=== PATIENT | female | born 1995 ===

== ENCOUNTER 2025-06-06 08:09 | Inpatient (IN) | payer OTHER ==
[~2025-06-06] VITALS: Ht 157.5 cm; Wt 90.0 kg
[2025-06-06 10:55] VITALS: BP 133/93
[2025-06-06] MEDS ORDERED: Haloperidol Lactate Inj. 5 MG/ML Injection IM PRN (13:55)
[2025-06-06 13:56] VITALS: BP 133/93
[2025-06-06] MEDS ORDERED: Aluminum Hydroxide 320MG/5ML 473 ML PO PRN (14:00)
[2025-06-06] MEDS ORDERED: FLU VACC TS2025-26(6MOS UP)/PF 45 MCG/0.5 ML SYRINGE IM SCH (14:00)
[2025-06-06] MEDS ORDERED: DiphenhydrAMINE HCl 50 MG/ML 1ML Vial IM PRN (14:00)
[2025-06-06] MEDS ORDERED: Ondansetron 4 MG SoluTab MM PRN (14:05)
[2025-06-06] MEDS ORDERED: LORazepam 2 MG/ML 1ML Injection IM PRN (14:05)
[2025-06-06] MEDS ORDERED: Polyethylene Glycol 3350 17 gm PO PRN (14:05)
--- NOTE | 2025-06-06 17:47 | NUR ---
SHIFT SUMMARY/ADMIT NOTE PT ARRIVED TO [facility] FROM [facility] IN [place] AT APPROX 1038. PT IS HERE VOLUNTARILY. SHE IS CALM AND COOPERATIVE WITH CARE. PT ENDORSES FLEETING SUICIDAL THOUGHTS. SHE STATES SHE FEELS LIKE SHE STILL INTENDS ON CARRYING OUT HER PLANS OF HANGING IF THINGS IN HER LIFE DON'T GET BETTER, BUT ALSO ENDORSES FUTURE GOALS. PATIENT REPORTS HER RECENTLY ASKED FOR A DIVORCE AND THAT CAUSED HER TO SPIRAL BECAUSE SHE WILL LOSE ALL OF HER SUPPORT. PATIENT WAS ABLE TO IDENTIFY REASONS FOR LIVING SUCH WANTING TO LIVE INDEPENDENTLY, BE A BETTER PERSON FOR HER 2 DAUGHTERS, WORK TO SUPPORT HERSELF AND EVEN RELOCATE TO [place]. PT'S IMMINENT NEEDS INCLUDING FINDING STABLE HOUSING TO HELP SUPPORT HER DURING HER LIFE TRANSITION. PT WAS ORIENTED TO THE UNIT AND PROVIDED SHOWER SUPPLIES. SHE APPEARS TO BE SMILING AND MINGLING APPROPRIATELY WITH PEERS. THE ADMISSION WAS COMPLETED AND CONSENTS WERE SIGNED. PT IS CURRENTLY SITTING IN GROUP ROOM WATCHING A MOVIE. SHE DENIES ANY NEEDS AT THIS TIME.
[2025-06-06 19:26] VITALS: BP 135/90
--- NOTE | 2025-06-07 04:16 | NUR ---
Patient is alert and oriented times four. She spent the evening watching a movie with her peers before going to bed around 2200. She states she has fleeting thoughts of SI, but denies HI and AVTH. She took trazodone at HS, and has been sleeping since shortly after she went to bed. Will continiue close monitoring every 15 minutes per unit protocol for safety and comfort
[2025-06-07 08:24] LABS: Very Low Density Lipoprot Chol 13 mg/dL (6-28)
[2025-06-07 08:32] LABS: CHOL/HDL RATIO 3.2; Cholesterol 169 mg/dL (50-200); HDL Cholesterol 52 mg/dL (>39); LDL/HDL RATIO 2.0; Low Density Lipoprotein Chol 104 mg/dL (0-110); Triglycerides 66 mg/dL (30-140)
[2025-06-07] MEDS ORDERED: Multivitamins 1 Tab PO SCH (09:00)
--- NOTE | 2025-06-07 18:39 | NUR ---
SHIFT SUMMARY PT AxOx4. PLEASANT AND COOPERATIVE WITH CARE. PT REPORTED FEELING A LITTLE BETTER TODAY, ESPECIALLY AFTER SPEAKING WITH STAFF AND RECEIVING ENCOURAGEMENT ABOUT POSSIBLE SUPPORT SYSTEMS SHE CAN ACCESS DURING HER DIVORCE/TRANSITION. PT ATTENDED GROUPS TODAY AND TOOK MEDICATION PRESCRIBED. SHE ENDORSE SI, BUT STATED IT WAS MUCH LESS THAN YESTERDAY. SHE DECLINED AVTH. PT HAS BEEN MINGLING APPROPRIATELY ON THE UNIT WITH PEERS/STAFF. PT REPORTED HER CURRENT TREATMENT PLAN TO START MEDICATION TO HELP WITH ANXIETY AND SLEEP SUPPORT. PT STATES SHE FEELS ENCOURAGED AND HOPEFUL AT THIS TIME AND GLAD SHE IS "SAFE HERE." PT IS CURRENTLY SITTING ON HER BED TALKING WITH HER ROOMATE. SHE DENIES ANY NEED AT THIS TIME.
[2025-06-07 19:49] VITALS: BP 141/95
--- NOTE | 2025-06-07 21:21 | NUR ---
Isabelataril given for a mass score of 3 wth anxiety.
--- NOTE | 2025-06-08 04:40 | NUR ---
Patient is alert and oriented times four. She complained about not feeling well rested last night and wondered if there was something she could take before bed for anxiety. She was given vistaril 30 minutes before bed for a MASS score of 3, then trazodone at bedtime. Patient has slept all night . Patient denies SI,HI and AVTH during evening assessment. She stayed up n the milieu with peers and is very social. Will continue close observation every 15 inutes for safety and comfort
[2025-06-08 08:51] VITALS: BP 140/81
--- NOTE | 2025-06-08 15:19 | NUR ---
SHIFT ASSESSMENT: PT DENIED SI, HI AND AVH. SHE REPORTED HER ANXIETY LEVEL 4/10w, "HOW EVERYTHING WILL GO WHEN I LEAVE HERE...A SAFE PLACE FOR ME TO BE." SHE REPORTED HER MOOD , "BALANCED...NOT GREAT...NOT BAD, I HAVE BEEN INSPIRED THOUGH...I''M WRITING MY LITTLE STORIES AGAIN." HER GOALS ARE: "DRINK MORE WATER, WRITE AND GO TO GROUPS." PT HAS BEEN ATTENDING GROUPS, SHE HAS BEEN ACITVE IN THE PT MILIEU. HER AFFECT IS CONGRUENT WITH HER STATED MOOD. PT HAS BEEN PLEASANT AND COOPERATIVE WITH CARE.
--- NOTE | 2025-06-08 19:15 | NUR ---
PT'S NOSE RING IS CLEAN AND INTACT.
[2025-06-08 19:29] VITALS: BP 146/100
--- NOTE | 2025-06-09 04:23 | NUR ---
Patient is a very pleasant, oriented lady who spent her evening in the milieu and sharing snack with her peers. She denied SI,HI and AVTH during evening assessment. Clemencia had asked for an evening vistril secondary to mild anxiety, but opted not to take it when it was explained that she would be taking Remeron. to this time, it appears she has been sleeping since going to bed at around 2200. Will continue monitoring every 15 minutes for safety and comfort.
[2025-06-09 08:56] VITALS: BP 129/90
--- NOTE | 2025-06-09 17:30 | NUR ---
SHIFT SUMMARY PT DENIES SI, HI, AVTH. ENDORSED FRUSTRATION/ANGER AT PHONECALL W/ YESTERDAY. PT REQUESTED TO TALK TO "SOMEONE" ABOUT THE PHONECALL AND THIS RN USED THERAPEUTIC COMMUNICATION AND TALKED W/ PT, WHICH APPEARED TO BE EFFECTIVE. PT IS NOW IN DAY ROOM WATCHING TV AND INTERACTING W/ PEERS. ATTENDED GROUPS, ATE MEALS, AND NO OTHER ACUTE EVENTS TODAY.
[2025-06-09 19:11] VITALS: BP 128/87
--- NOTE | 2025-06-10 04:42 | NUR ---
SHIFT SUMMARY: PT A/O X4. DENIES SI, HI, AND AVH. PT STATES DEPRESSION IS STILL PRESENT.PT HAS A NOSE RING PIERCING PRESENT AT THIS TIME. PT SAID SHE HAD AN ANGER ATTACK EARILER,BUT, DANIELLE RODGERS HELPED HER OUT OF IT BY LETTING HER TALK HER FEELINGS THROUGH. HER ANGER ISSUE WAS BEING PISSED OF WHO ANNOUNCED, THAT HE WANTED A DIVORCE. SHE FELT BETTER NOW SINCE THINGS HAVE BEEN OK NOW. PT WRITES IN HER JOURNAL.PT FEELS THAT SHE JUST NEEDS A PLACE TO PLANT HER FEET AND SHE CAN GO ON FROM THERE. IN A HAPPY MOOD AT THIS TIME. SPEECH IS CLEAR AND EVEN TONE. REMINDED TO ASK FOR HELP IF NEEDS ANYTHING.
[2025-06-10 08:49] VITALS: BP 114/76
--- NOTE | 2025-06-10 16:25 | NUR ---
SHIFT SUMMARY: PT IS ALERT, ORIENTED AND COOPERATIVE WITH CARE. SHE DENIES SI AND HI. REPORTS HISTORY OF AUDITORY HALLUCINATIONS BUT DENIES THEM CURRENTLY. SHE APPEARS WELL GROOMED AND SHOWERED THIS AM. SHE HAS APPROPRIATE EYE CONTACT AND STATES THAT HER MOOD IS "OK". REPORTS SOME TROUBLE SLEEPING R/T NOT HAVING A FAN LIKE SHE HAS AT HOME. PT WAS PRESENT FOR MEALS AND ATTENDED GROUP. SHE WAS ACTIVE IN MILIEU, SPENT TIME WATCHING TV IN THE DAY ROOM AND WRITING IN HER JOURNAL.
--- NOTE | 2025-06-10 16:32 | NUR ---
SHIFT SUMMARY: PT ALERT, ORIENTED AND COOPERATIVE WITH CARE. HE DENIES SI, HI AND AVH. PT APPEARS WELL GROOMED AND HAS APPROPRIATE EYE CONTACT. STATES THAT HIS MOOD IS "OK BUT TIRED". HE WAS AGREEABLE TO COMPLETING HIS ADMIT ASSESSMENTS AND WAS ENGAGED DURING THE COMPLETION. HE WAS PRESENT FOR MEALS AND SPENT MUCH OF THE DAY RESTING ON HIS BED.
--- NOTE | 2025-06-11 04:10 | NUR ---
SHIFT SUMMARY: PT A/O X4. DENIES SI, HI, AND AVH. PT INTERACTS WITH OTHERS AND IS IN THE GROUP ROOM. HAS NO ISSUES AT THIS TIME. WENT TO GROUP AND SNACK TIME. COMPLIANT WITH MEDICATIONS. DID HAVE BACK PAIN AND IBUPROPHEN GIVEN WITH RELEAF. WATCHED MOVIE UNTIL BED TIME. WENT TO BED AND HAS BEEN SLEEPING SINCE THEN.WILL CONTINUE TO MONITOR Q 15 MIN.
--- NOTE | 2025-06-11 04:28 | NUR ---
PT HAS NOSE RING PIERCING PRESENT AND INTCT. DENIES ISSUES.
[2025-06-11 08:53] VITALS: BP 121/76
--- NOTE | 2025-06-11 10:11 | NUR ---
ASUUMED PT CARE @0700. PT UP FOR BREAKFAST, COMMUNITY MEETING AND MORNING MED PASS. SHE PRESENTS WELL GROOMED AND CALM. SHE REPORTS HER MOOD TIRED. SHE STATES THAT SHE SLEEP MOST OF THE NIGHT BUT KEPT WAKING UP WITH "WEIRD" DREAMS. SHE REPORTS THEY ARE NOT NIGHTMARES JUST STRANGE. SPEECH IS ORGANIZED AND LINEAR. EYE CONTACT IS APPROPRIATE. SHE IS COMPLIANT WITH MEDICATIONS AND DENIES ANY ADVERSE SIDE EFFECTS. SHE DENIES SI, AVH. SHE DENIES ANY CURRENT NEEDS. WILL CONTINUE PLAN OF CARE
--- NOTE | 2025-06-11 17:27 | NUR ---
SHIFT SUMMARY NO CLINICAL CHANGES TODAY. PT HAS BEEN UP FOR MEALS AND GROUPS. SHE IS PLEASANT AND COOPERATIVE WITH CARE. SHE IS INTERACTING WELL WITH STAFF AND PEERS. SHE DENIES ANY NEEDS. WILL CONTINUE POC
[2025-06-11 19:29] VITALS: BP 126/78
--- NOTE | 2025-06-12 04:36 | NUR ---
Patient sssspent her night in the group room watching movies with her peers. She asked this nurse during med pass if she would be able to receive a prescription for her 15mg Remeron when she goes home. She states it is the best sleep she has had in years. Dhe denies SI,HI and AVTH during evening assessment. No PRN medications were given. Will continue monitoring every 15 minutes for safety and comfort
[2025-06-12 08:52] VITALS: BP 129/76
--- NOTE | 2025-06-12 11:09 | NUR ---
ASSUMED PT CARE @0700. PT IS AA&O TO PERSON, PLACE, TIME, AND SITUATION. SHE IS PLEASANT AND COOPERATIVE WITH CARE. SHE REPORTS THAT SHE SLEPT WELL, SHE REPORTS HER MOOD ANXIOUS OVER DISCHARGE. SHE STATES DISAPPOINTMENT IN WAITING LIST FOR INTERMEDIATE SHE WOULD LIKE TO GO TO. WE SPENT TIME TALKING ABOUT THE PROCESS OF HOW AND WHERE TO APPLY FOR SNAP/TANF BENEFITS. SHE REPORTS GOOD RESULTS WITH MEDICATION REGIMINE AND DENIES ANY ADVERSE EFFECTS. SHE DENIES SI, AVH. SHE HAS BEEN UP FOR BREAKFAST AND SHOWER. SHE IS INTERACTING WELL WITH PEERS AND STAFF. WILL CONTINUE POC
[2025-06-12 20:06] VITALS: BP 144/96
--- NOTE | 2025-06-13 04:14 | NUR ---
Patient is alert and oriented times four. She spent the evening in the dayroom with her peers before going to snack and then heading to bed. She has slept through the night, and again mentioned how well the Remeron has worked for her. No PRN medications given overnight. Clemencia denies SI,HI and AVTH at time of evening assessment. Will continue close monitoring every 15 minutes for safety and comfort.
[2025-06-13 08:40] VITALS: BP 133/85
[2025-06-13] MEDS ORDERED: MIRT15 PO (11:47)
--- NOTE | 2025-06-13 14:28 | NUR ---
DISCHARGE NOTE PT AxOx4. PLEASANT AND COOPERATIVE WITH CARE. PT IS DISCHARGING TODAY TO THE [facility]. PT DENIED SI/HI AND AVTH OR ANY MEDICATION SIDE EFFECTS. SHE IS GOAL ORIENTED AND LOOKING FORWARD TO DISCHARGING TODAY. DISCHARGE INSTRUCTIONS WERE DISCUSSED INCLUDING DC MED LIST, PATIENT EDUCATION ON NEW MEDS, FOLLOW UP MENTAL HEALTH OUTPATIENT INFO AND ADDITIONAL RESOURCES. PT VERBALIZED UNDERSTANDING. SAFETY PLAN WAS COMPLETED WITH THIS RN AND BELONGINGS WERE RETURNED. SHE WAS SAFELY ESCORTED OUT WITH [facility] AT APPROX 1340 WHERE SHE WAS MET BY HER FRIEND, LUIS WHO AGREED TO TRANSPORT HER TO THE [facility].
== END 2025-06-13 13:40 | disposition home or self-care (01) | DRG 881 ==
LOC: BHU 08:09
PROVIDERS: ADMIT Psychiatry & Neurology Psychiatry
DX: F32.A Depression, unspecified (principal); R45.851 Suicidal ideations; Z59.00 Homelessness unspecified; F12.90 Cannabis use, unspecified, uncomplicated; G47.00 Insomnia, unspecified; F10.90 Alcohol use, unspecified, uncomplicated; Z88.0 Allergy status to penicillin; Z98.890 Other specified postprocedural states; Z79.899 Other long term (current) drug therapy; Z79.1 Long term (current) use of non-steroidal anti-inflammatories (NSAID); Z23 Encounter for immunization
CPT/HCPCS: 36415; 80061; 83036; A9270